=== PATIENT | male | born 1960 | race African-American/Black ===

== ENCOUNTER 2019-07-06 14:16 | Emergency (ER) | payer OTHER ==
[~2019-07-06] VITALS: Ht 180.3 cm; Wt 80.7 kg
[2019-07-06 14:34] VITALS: BP 121/78
--- NOTE | 2019-07-06 14:36 | NUR ---
ED Nurse Note: Patient walked into ED from home c/o right lower leg laceration that happened 20 minutes prior to arrival to ED on a metal. Bleeding controlled. Patient presented AAO x4, VSS at this time.
--- NOTE | 2019-07-06 14:37 | NUR ---
ED Nurse Note: health care technician at bedside
[2019-07-06] MEDS ORDERED: MUPIROCIN15 GM TOPIC (15:26)
[2019-07-06] MEDS ORDERED: TYLENOL EXTRA500 MG ORAL (15:26)
--- NOTE | 2019-07-06 15:26 | Emergency Room Report ---
History of Present Illness General Chief Complaint: Laceration Source: Patient Present Illness HPI 58-year-old male with no significant past medical history here complaining of a laceration of the right lower extremity. Patient reports that he was working as he missed the middle and the metal cut the side of his right tib-fib on the lateral side. A 1 cm superficial laceration noted. Minimal bleeding noted. Up -to-date with tetanus shot. Has full range of motion of the affected extremity. Has full sensation. Neurovascularly intact. Denies all other injuries. Denies taking any blood thinners. Denies recent travel, fever chills , URI symptoms. COVID-19 risk:Contact w/high r: No COVID-19 risk:Travel to affect: No Has patient experienced doss: No Allergies: Coded Allergies: No Known Allergies (Unverified , 07/06/19) Patient History Past Medical History: see triage record Past Surgical History: none Pertinent Family History: none Immunizations: UTD Reviewed Nursing Documentation: PMH: Agreed; PSxH: Agreed Nursing Documentation-PMH Past Medical History: No History, Except For Review of Systems All Other Systems: negative except mentioned in HPI Physical Exam Vital Signs Date Time Temp Pulse Resp B/P (MAP) Pulse Ox O2 Delivery O2 Flow Rate FiO2 07/06/19 14:22 97.9 88 17 121/78 (92) 95 Room Air Sp02 EP Interpretation: reviewed, normal General Appearance: no apparent distress, alert, GCS 15, non-toxic Head: normocephalic, atraumatic Eyes: bilateral eye normal inspection, bilateral eye PERRL ENT: hearing grossly normal, normal pharynx, no angioedema, normal voice Neck: full range of motion, supple/symm/no masses Respiratory: chest non-tender, lungs clear, normal breath sounds, no rhonchi, no retraction, no wheezing, speaking full sentences Cardiovascular #1: regular rate, rhythm, no edema, no murmur Cardiovascular #2: 2+ dorsalis pedis (R), 2+ dorsalis pedis (L) Gastrointestinal: normal bowel sounds, non tender, soft, non-distended, no guarding, no rebound Genitourinary: no CVA tenderness Musculoskeletal: back normal Neurologic: alert, motor strength/tone normal, oriented x3, sensory intact, responsive, speech normal Psychiatric: judgement/insight normal, memory normal, mood/affect normal, no suicidal/homicidal ideation Skin: laceration - 1 cm superficial laceration right lateral tib-fib Lymphatic: no adenopathy Procedures Laceration/Wound Repair Laceration/Wound Repair : Consent: Verbal Wound Location: lower extremity - Right lateral tib-fib Wound's Depth, Shape: superficial Wound Length (cm): 1 Wound Explored: clean Betadine Prep?: Yes Anesthesia: Lidocaine w/ Epi Volume Anesthetic (ccs): 5 Wound Repaired With: sutures Suture Size/Type: 5:0, proline Number of Sutures: 9 Layer Closure?: Yes Sterile Dressing Applied?: Yes Splint Applied?: No Sling Applied?: No Patient Tolerated: Well Complications: None Medical Decision Making PA Attestation All my diagnosis and treatment plans were reviewed ad discussed with my supervising physician Dr. Kasper Diagnostic Impression: Primary Impression: Laceration of leg ER Course 58-year-old male with no significant past medical history here complaining of a laceration of the right lower extremity. Patient reports that he was working as he missed the middle and the metal cut the side of his right tib-fib on the lateral side. A 1 cm superficial laceration noted. Minimal bleeding noted. Up -to-date with tetanus shot. Has full range of motion of the affected extremity. Has full sensation. Neurovascularly intact. Denies all other injuries. Denies taking any blood thinners. Denies recent travel, fever chills , URI symptoms. Ddx considered but are not limited to : Superficial laceration, deep laceration , tendon involvement with laceration, laceration with foreign body Vital signs: are WNL, pt. is afebrile H&PE are most consistent with: Superficial laceration of leg ORDERS: Mupirocin ointment, x-ray of right tib-fib, Tylenol ED INTERVENTIONS: Wound closure DISCHARGE: At this time pt. is stable for d/c to home. Will provide printed patient care instructions, and any necessary prescriptions. Care plan and follow up instructions have been discussed with the patient prior to discharge. Sutures to be removed in 7 to 10 days, medication as directed, follow-up primary care provider, worsening symptoms return to the emergency room Other X-Ray Diagnostic Results Other X-Ray Diagnostic Results : X-Ray ordered: Right tib-fib # of Views/Limited Vs Complete: 3 View Indication: Pain EP Interpretation: Yes JOSE L Xray: Interpretation reviewed, by supervising MD, and agrees with findings. Interpretation: no dislocation, no soft tissue swelling, no fractures, other - No foreign body Impression: No acute disease Electronically Signed by: Conor Han PA-C Last Vital Signs Date Time Temp Pulse Resp B/P (MAP) Pulse Ox O2 Delivery O2 Flow Rate FiO2 07/06/19 14:34 97.9 17 121/78 95 Room Air 07/06/19 14:22 88 Status: improved Disposition: HOME, SELF-CARE Condition: Stable Scripts Mupirocin (MUPIROCIN) 15 Gm Cream..g. 1 APPLIC TOPIC THREE TIMES A DAY, #15 GM Prov: Conor Jamison 07/06/19 Acetaminophen* (TYLENOL EXTRA STRENGTH*) 500 Mg Tablet 500 MG ORAL Q8H PRN for Prn Headache/Temp > 101, #30 TAB 0 Refills Prov: Conor Jamison 07/06/19 Referrals: [facility]ERR[facility] (PCP) Patient Instructions: Laceration Care, Adult Conor Jamison Jul 06, 2019 15:26
--- NOTE | 2019-07-06 15:28 | Diagnostic Imaging Report ---
Indication: right leg pain Comparison: None Findings: Two views of the right tibia and fibula were obtained. No acute fracture, malalignment, or periosteal reaction are identified. Soft tissues are unremarkable. Impression: Negative examination of the tibia and fibula
[2019-07-06 15:33] VITALS: BP 121/78
--- NOTE | 2019-07-06 15:33 | NUR ---
ED Nurse Note: Pt cleared by health care Provider for discharge. DC instructions/prescription was given and explained to pt and verbalized understanding of teachings. All medical deviecs such as ID band removed. Pt is AAO x4, ambulatory and left with all personal belongings.
== END 2019-07-06 15:33 | disposition home or self-care (01) ==
LOC: EMR 14:47
DX: S81.811A Laceration without foreign body, right lower leg, initial encounter (principal); W26.9XXA Contact with unspecified sharp object(s), initial encounter; Y92.9 Unspecified place or not applicable; Y99.0 Civilian activity done for income or pay
CPT/HCPCS: 12001; 73590; Z7502; 99283

== ENCOUNTER 2019-07-16 09:46 | Emergency (ER) | payer OTHER ==
[~2019-07-16] VITALS: Ht 180.3 cm; Wt 81.6 kg
[~2019-07-16 09:46] MED LIST: MUPIROCIN15 GM TOPIC; TYLENOL EXTRA500 MG ORAL
[2019-07-16 09:48] VITALS: BP 124/78
--- NOTE | 2019-07-16 09:50 | NUR ---
ED Nurse Note: patient walked into ED from home for suture removal on his left leg. patient visited [facility] [place] [facility] on 07/06/19 for laceration. patient is alert awake x4 ambulatory steady gait, able to speak in full sentences.
--- NOTE | 2019-07-16 10:05 | Emergency Room Report ---
History of Present Illness General Chief Complaint: Wound Recheck/Suture Removal Source: Patient Present Illness HPI Disclaimer: Please note that this report is being documented using [employer] technology. This can lead to erroneous entry secondary to incorrect interpretation by the dictating instrument. HPI: 58-year-old male presents for evaluation of suture removal. He was seen in the emergency department last week and had 9 sutures placed in the right lower leg after he sustained a laceration from a cut can lid. Tetanus was up-to -date. Denies any wound dehiscence, purulent drainage, surrounding edema, erythema, warmth. Has been applying the mupirocin cream. Denies any pain. No other complaints at this time. PMH: Reviewed PSH: Reviewed Allergies: Reviewed Social Hx: Reviewed Allergies: Coded Allergies: No Known Allergies (Unverified , 07/06/19) COVID-19 Screening Contact w/high risk pt: No Recent Travel to affected area: No Experienced COVID-19 symptoms?: No Nursing Documentation-PMH Past Medical History: No History, Except For Review of Systems All Other Systems: negative except mentioned in HPI Physical Exam Vital Signs Date Time Temp Pulse Resp B/P (MAP) Pulse Ox O2 Delivery O2 Flow Rate FiO2 07/16/19 09:48 97.5 98 19 124/78 (93) 98 Room Air General: Awake and alert, no acute distress HEENT: NC/AT. EOMI. Resp: Normal work of breathing Skin: Linear wound on the right lower extremity, lateral side, clean dry and intact. Appears well-healed. Sutures are intact. No edema, no erythema, no drainage, no bleeding. MSK: Normal tone and bulk. Moving all extremities. No obvious deformity. Neuro: Awake and alert. Mentating appropriately Medical Decision Making Diagnostic Impression: Primary Impression: Encounter for removal of sutures ER Course 58-year-old male presents for evaluation of suture removal 1 week after placement. Wound is clean dry and intact and appears to be well-healed. He has been compliant with mupirocin and tetanus is up-to-date. 9 sutures removed. Discharged with standard wound care and follow-up precautions. Can return to the emergency department new or worsening symptoms. Last Vital Signs Date Time Temp Pulse Resp B/P (MAP) Pulse Ox O2 Delivery O2 Flow Rate FiO2 07/16/19 09:48 97.5 98 19 124/78 98 Room Air Disposition: HOME, SELF-CARE Condition: Stable Patient Instructions: Wound Check Additional Instructions: Please follow-up with your primary care doctor in the next 1 to 3 days to discuss this emergency department visit and for reevaluation. If you have any new or worsening symptoms please return to the emergency department for reevaluation. Please note that this report is being documented using [employer] technology. This can lead to erroneous entry secondary to incorrect interpretation by the dictating instrument. Deric Rodriguez MD Jul 16, 2019 10:05
[2019-07-16 10:09] VITALS: BP 124/78
--- NOTE | 2019-07-16 10:10 | NUR ---
ER DISCHARGE NOTE: Patient is cleared to be discharged per ERMD DR RODRIGUEZ, sutures removed by Dr Rodriguez, pt is aox4, on room air, with stable vital signs. pt was given dc instructions, pt was able to verbalize understanding, pt id band removed without complications. pt is able to ambulate with steady gait. pt took all belongings.
== END 2019-07-16 10:10 | disposition home or self-care (01) ==
LOC: EMR 10:02
DX: Z48.02 Encounter for removal of sutures (principal)
CPT/HCPCS: 99281